=== PATIENT | female | born 1995 | race Two or more races ===

== ENCOUNTER 2016-10-13 19:18 | Inpatient (IN) | payer MEDICAID ==
[~2016-10-13] VITALS: Ht 162.6 cm; Wt 125.6 kg
--- NOTE | ~2016-10-13 | OR ---
PATIENT'S NAME: DAVID CAI [facility] AGE: 21 Y [address] ROOM: [place] [address] LOCATION: [facility]BS ADMIT DATE: 10/13/2016 OR/Procedure Report DISCHARGE DATE: FAMILY PHYSICIAN: PHYSICIAN, NO ATTENDING PHYSICIAN: Linda Kraft SURGEON: Linda Kraft MD SOCIAL MEDIA CONTENT SPECIALIST: DATE OF PROCEDURE: 10/13/2016 PROCEDURE PERFORMED: Spontaneous vaginal delivery over intact perineum. PREOPERATIVE DIAGNOSES: 1. Intrauterine at 41 weeks and 3 days based on last menstrual period. 2. No care. POSTOPERATIVE DIAGNOSES: 1. Intrauterine at 41 weeks and 3 days based on last menstrual period. 2. No care. FINDINGS: Viable female , weight 8 pounds 11 ounces, with scores of 7 and 9. Intact placenta with 3 vessel cord. Normal-appearing cervix and vagina. Second-degree perineal laceration. Intact sphincter. Specimens: Cord blood. Placenta was not sent for pathology. ANESTHESIA: None. ESTIMATED BLOOD LOSS: 450 mL. ANTIBIOTICS: Did receive one dose of penicillin due to uncertain dates for GBS prophylaxis. DISPOSITION: The patient and remained in the room in good condition. INDICATIONS FOR PROCEDURE: The patient is a 21-year-old, 1, para 0, who presented in active labor to labor and delivery. She had no care. She was certain of her last menstrual period and knew of the , but had not told her family nor anyone else. Dating was based on her last menstrual period, which placed her at 41 weeks and 3 days. She was found to be 6 to 7 cm dilated. The patient was admitted. An OB panel, GBS, and urine drug screen and gonorrhea chlamydia were obtained. The patient otherwise underwent normal labor management. She did not receive anything for pain relief. She progressed quickly to 8 cm and then over a slower than normal labor curve to complete. PATIENT'S NAME: DAIVD CAI [facility] AGE: 21 Y [address] ROOM: [place] [address] LOCATION: [facility] ADMIT DATE: 10/13/2016 OR/Procedure Report DISCHARGE DATE: FAMILY PHYSICIAN: PHYSICIAN, NO ATTENDING PHYSICIAN: Linda Kraft DESCRIPTION OF PROCEDURE: The patient was placed in the foot pedals and allowed to push. With expulsive efforts of about 30 minutes, the head delivered in the straight occiput anterior position. Turtle sign was noted. With expulsive efforts and Kim maneuver, the head did restitute and anterior shoulder (left) and remainder of the quickly delivered. There was a loose body cord. Cord was clamped and cut. Infant was placed on maternal abdomen in care of waiting nurses. Cord blood was obtained. The placenta delivered with gentle traction and IV Pitocin was started. Cervix and vagina were examined and found to have no lacerations. There was a second degree perineal laceration to the rectal sphincter, but sphincter was intact. This was repaired in standard fashion with 3-0 Vicryl. ESTIMATED BLOOD LOSS: 450 mL. MD JOAQUIN BROWN/sharmaine /[id number] d: 10/14/16 0424 t: 10/17/16 0743, OPERATIVE SUMMARY
[2016-10-13 20:26] LABS: BASOPHIL % 0.2 %; HEMATOCRIT 34.8 % (33.0-46.0); HEMOGLOBIN 11.7 g/dL (11.0-15.0); IMMATURE GRANULOCYTE % 0.2 %; LYMPHOCYTE # 1.1 K/uL (0.8-4.0); LYMPHOCYTE % 8.4 %; MCH 27.1 pg (27.0-34.0); MCHC 33.6 gm/dL (32.0-36.5); MCV 80.7 fl (83.0-98.0); MONOCYTE # 0.5 K/uL (0.0-1.0); MPV 11.3 fl (9.4-12.4); NEUTROPHIL # (ANC) 11.5 K/uL (1.8-7.8); NEUTROPHIL % 87.2 %; NRBC % 0 /100WBC (0-0.00); PLATELET COUNT 225 K/uL (150-450); RBC 4.31 M/uL (3.50-5.00); WBC 13.2 K/uL (4.0-11.0)
[2016-10-14 00:42] LABS: BICARBONATE 22.6 mmol/L (18.0-23.0); PCO2 59 mmHg (35-45); PO2 13 mmHg (80-90)
[2016-10-14 05:19] LABS: BASOPHIL % 0.1 %; HEMATOCRIT 26.5 % (33.0-46.0); HEMOGLOBIN 8.6 g/dL (11.0-15.0); IMMATURE GRANULOCYTE # 0.1 K/uL (0.0-0.3); IMMATURE GRANULOCYTE % 0.4 %; LYMPHOCYTE # 1.4 K/uL (0.8-4.0); LYMPHOCYTE % 8.7 %; MCH 26.4 pg (27.0-34.0); MCHC 32.5 gm/dL (32.0-36.5); MCV 81.3 fl (83.0-98.0); MONOCYTE # 0.9 K/uL (0.0-1.0); MONOCYTE % 5.6 %; MPV 10.7 fl (9.4-12.4); NEUTROPHIL # (ANC) 13.9 K/uL (1.8-7.8); NEUTROPHIL % 85.2 %; NRBC % 0 /100WBC (0-0.00); PLATELET COUNT 208 K/uL (150-450); RBC 3.26 M/uL (3.50-5.00); RDW-CV 14.1 % (11.9-14.6); WBC 16.3 K/uL (4.0-11.0)
--- NOTE | 2016-10-14 06:26 | NUR ---
Patient knew of her due to her last menstural period on 12/28/15. She didn't tell anyone about it. Her 2 older sisters arrived at the hospital with her and were shocked to find out she was . They were worried about how to tell their mom who was in [place] and has BP issues. Her mom arrived in [facility]. After asking the pt why she felt she couldn't tell anyone about the , she stated her family is odd and they're all afraid of her mom. The FOB is not involved, but the friend of the pt stated he knew she was at the beginning of the , but doesn't know that she decided to keep the baby. The pt is attentive to baby's needs, looks at and talks to baby, cuddles baby, and wants to breastfeed. Pts sister was in the room for delivery and both sisters, pts mom, and friend all seemed excited to hold the baby and seemed supportive of pt. Pts friend stayed at bedside for the night.
--- NOTE | 2016-10-14 11:40 | NUR ---
1015 Met with patient at bedside. Introduced myself and explained my role with the CM department. Patient confirms that she had no care and did not tell anyone in her family that she was . She states she did not drink alcohol, smoke, or use illicit drugs during her . She states she took good care of herself and would research if something did not seem right. She reports having no morning sickness so it was easy to hide her . FOB is not involved, but she states he did know that she was . She states her plan and desire is to keep the baby girl. Her sisters have children of their own so she says she does and will have a lot of support from them. 6 of the 7 children are girls so she will have plenty of xrfs-my-ivus girl items. She said she was afraid to tell her mom because her mom is a and has high blood pressure and anxiety and she did not want to worry her. She said her mom has struggled with anxiety since her dad 6 years ago. She does not have a crib or a car seat. We talked about the importance of baby not sleeping with her and she needs to have something for the baby to sleep in. She said she found car seats and crib/bassinet's on [address] and she is going to have her sisters or friends pick them up for her. She has some baby items hidden in her car trunk like diapiers, wipes, blankets, and bottles. She has applied for Medicaid, but has not heard back from them. I instructed her to contact the hospital admission or billing department once she has the Medicaid number so we can get it added to her and baby's account. I referred her to the [place] in [place]. I also provided her with a list of community resources in [place]. I discussed signs and symptoms of post depression with her and left her the hand out on this. At this time she denies any discharge needs or concerns. Will continue to follow and offer supports as needed.
[2016-10-15] MEDS ORDERED: SURFAK240 MG PO (13:29)
[2016-10-15] MEDS ORDERED: FEOSOL325 MG PO (13:29)
[2016-10-15] MEDS ORDERED: PRENATAL 1+1)(P1 TAB PO (13:30)
[2016-10-15] MEDS ORDERED: DERMOPLAST SPRA56 GM TOP (13:30)
[2016-10-15] MEDS ORDERED: MOTRIN800 MG PO (13:32)
[2016-10-15] MEDS ORDERED: PERCOCET 5-3251 EACH PO ×2 (13:33→15:47)
== END 2016-10-15 18:05 | disposition disaster alternative care site (69) | DRG 775 ==
LOC: GOBM 19:18 → GOBS 19:18 → GOBM 19:20 → GOBS 21:00
PROVIDERS: ADMIT Family Medicine
PROC: 0KQM0ZZ Repair Perineum Muscle, Open Approach (ICD-10-PCS; principal; 2016-10-13)
PROC: 10E0XZZ Delivery of Products of Conception, External Approach (ICD-10-PCS; 2016-10-13)
DX: O48.0 Post-term pregnancy (principal); D62 Acute posthemorrhagic anemia; Z3A.41 41 weeks gestation of pregnancy; Z37.0 Single live birth; O70.1 Second degree perineal laceration during delivery; O99.02 Anemia complicating childbirth
CPT/HCPCS: G0010; J2001; J2540; J2590; J7120